=== PATIENT | male | born 1990 | race Caucasian/White ===

== ENCOUNTER 2021-04-24 20:15 | Inpatient (IN) | payer MEDICAID, OTHER ==
[~2021-04-24] VITALS: Ht 175.3 cm; Wt 67.9 kg
[2021-04-24] MEDS ORDERED: mag hydrox/Alum hydrox/simeth 30ml oral suspension PO PRN (23:05)
[2021-04-24] MEDS ORDERED: acetaminophen 325mg tablet PO PRN ×2 (23:05)
[2021-04-24] MEDS ORDERED: loperamide 2mg capsule PO PRN (23:05)
[2021-04-24] MEDS ORDERED: magnesium hydroxide 30ml (MOM) UD suspension PO PRN (23:05)
[2021-04-24] MEDS ORDERED: traZODone 50mg tablet PO PRN (23:40)
[2021-04-25] VITALS: BP 139/102
[2021-04-25] MEDS ORDERED: PRAZ1CAP5 PO (01:01)
[2021-04-25] MEDS ORDERED: ESCI20TA PO (01:01)
[2021-04-25] MEDS ORDERED: PROP10TA10 PO (01:01)
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
[2021-04-25 08:00] VITALS: BP 146/87
[2021-04-25] MEDS ORDERED: propranolol 10mg tablet PO SCH (08:00)
[2021-04-25] MEDS ORDERED: ESCITALOPRAM OXALATE 5 MG TABLET PO SCH (08:00)
[2021-04-25 08:19] LABS: HEMOGLOBIN A1C 4.7 % (4.5-6.2)
[2021-04-25 08:22] LABS: CHOL/HDL RATIO 4.6 (0.00-4.99); CHOLESTEROL 211 MG/DL (0-200); HDL CHOLESTEROL 46 MG/DL (35-60); LDL CHOLESTEROL 138 MG/DL (50-100); TRIGLYCERIDES 112 MG/DL (20-135)
[2021-04-25] MEDS ORDERED: ondansetron 4mg rapidly disintigrating tab PO ONE (10:55)
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
--- NOTE | 2021-04-25 15:28 | NUR ---
Jose Ramon note: Taxi is here and pt is missing. Called pt on his cell phone and he states the taxi took too long so he started walking. Taxi has left and pt states he is walking to the airport.
--- NOTE | 2021-04-25 15:29 | NUR ---
Discharges Note: Pt. reviewed all discharge paperwork and a signed copy was placed in chart. Pt. received all of his belongings he brought into the unit. Follow up apt information provided 05/02/21 at 8:30 AM with NOHEMY Grubbs @ [address] # [phone]. Pt. left the unit at 1500.
[2021-04-25] MEDS ORDERED: prazosin 1mg capsule PO SCH (21:00)
== END 2021-04-25 15:29 | disposition home or self-care (01) | DRG 751 ==
LOC: ADULT MH 20:15
PROVIDERS: ADMIT Psychiatry & Neurology Neurology with Special Qualifications in Child Neurology; ATTEND Psychiatry & Neurology Neurology with Special Qualifications in Child Neurology
DX: F33.1 Major depressive disorder, recurrent, moderate (principal); F10.21 Alcohol dependence, in remission; F12.20 Cannabis dependence, uncomplicated; R19.7 Diarrhea, unspecified; F43.10 Post-traumatic stress disorder, unspecified; G89.29 Other chronic pain; Z82.0 Family history of epilepsy and other diseases of the nervous system; Z82.49 Family history of ischemic heart disease and other diseases of the circulatory system
CPT/HCPCS: 36415; 80061; 83036; 87081; 99285